=== PATIENT | male | born 1945 | race Caucasian/White ===

== ENCOUNTER → 2017-09-15 | Outpatient (CLI) | payer MEDICARE, OTHER ==
[~2017-09-15] MED LIST: DULO60 PO; LEVCAR2525 PO; PRAM.5 PO; TROSPIUM CHLORI60 MG PO; ULTRA-LIGHT RO1 EACH UD; [UNRECOGNIZED DRUG - OTHER] PO
== END | disposition home or self-care (01) ==
LOC: PLD 07:58 → LAB SHORT 07:58
DX: D22.5 Melanocytic nevi of trunk (principal)
CPT/HCPCS: 88305

== ENCOUNTER → 2019-10-16 | Outpatient (CLI) | payer MEDICARE, OTHER | END | disposition home or self-care (01) | LOC: PLD 08:14 → LAB SHORT 08:14 | DX: D48.5 Neoplasm of uncertain behavior of skin (principal) | CPT/HCPCS: 88305 ==

== ENCOUNTER → 2020-09-30 | Outpatient (CLI) | payer MEDICARE, OTHER | END | disposition home or self-care (01) | LOC: LAB SHORT 11:42 → LAB 11:42 | DX: D48.5 Neoplasm of uncertain behavior of skin (principal) | CPT/HCPCS: 88305 ==

== ENCOUNTER 2021-11-27 11:54 | Emergency (ER) | payer MEDICARE, OTHER ==
[~2021-11-27] VITALS: Ht 188 cm; Wt 68.0 kg
[2021-11-27 12:52] LABS: BASOPHILS ABSOLUTE AUTO 0.05 K/mm3 (0.00-0.23); BASOPHILS PERCENT AUTO 0 % (0-2); EOSINOPHILS ABSOLUTE AUTO 0.03 K/mm3 (0.00-0.68); EOSINOPHILS PERCENT AUTO 0 % (0-6); Hematocrit 38.3 % (37.0-53.0); Hemoglobin 12.8 g/dL (13.5-17.5); IMMATURE GRAN ABSOLUTE AUTO 0.06 K/mm3 (0.00-0.10); IMMATURE GRAN PERCENT AUTO 0 % (0-1); LYMPHOCYTES ABSOLUTE AUTO 1.41 K/mm3 (0.84-5.20); LYMPHOCYTES PERCENT AUTO 10 % (21-46); MONOCYTES ABSOLUTE AUTO 1.23 K/mm3 (0.16-1.47); MONOCYTES PERCENT AUTO 9 % (4-13); Mean Corpuscular HGB 31.3 pg (26.0-34.0); Mean Corpuscular HGB Conc 33.4 g/dL (31.5-36.5); Mean Corpuscular Volume 94 fL (80-100); Mean Platelet Volume 11.5 fL (9.1-12.4); NEUTROPHILS ABSOLUTE AUTO 11.65 K/mm3 (1.96-9.15); NEUTROPHILS PERCENT AUTO 81 % (41-73); Platelet Count 205 K/mm3 (150-400); RDW Coefficient Variation 12.3 % (11.7-14.2); RDW Standard Deviation 42.7 fL (35.1-46.3); Red Blood Cell Count 4.09 M/mm3 (4.30-5.90); White Blood Cell Count 14.43 K/mm3 (4.00-11.30)
[2021-11-27 15:05] LABS: Source, Urine Foley catheter
[2021-11-27 15:10] LABS: Appearance, Urine Hazy (Clear); Bilirubin, Urine Neg (Neg); Blood, Urine 5+ (Neg); Color, Urine Yellow (P-Yellow); Glucose Qualitative, Urine Neg (Neg); Ketones, Urine Neg (Neg); Leukocyte Esterase, Urine Neg (Neg); Nitrite, Urine Neg (Neg); Protein, Urine 1+ (Neg); Urobilinogen, Urine NORM (Normal)
[2021-11-27 15:34] LABS: Bacteria Few /hpf; Hyaline Casts 0-2 /lpf (0-2); RBC Cast 0-2 /lpf (0); Red Blood Cells, Urine 25-50 /hpf (0-2); Squamous Epithelial Cells Rare /hpf (Few); White Blood Cells, Urine 0-2 /hpf (0-5)
[2021-11-27 16:13] LABS: Bun/Creatinine Ratio 13.7 (12.0-20.0); Calcium, Blood 8.8 mg/dL (8.5-10.1); Creatinine, Blood 3.29 mg/dL (0.60-1.20); Potassium, Blood 3.9 mmol/L (3.5-5.5)
== END 2021-11-27 18:56 | disposition home or self-care (01) ==
LOC: ER 11:54
PROVIDERS: Student in an Organized Health Care Education/Training Program
DX: N17.9 Acute kidney failure, unspecified (principal); G20 Parkinson's disease; Z88.8 Allergy status to other drugs, medicaments and biological substances; Z79.899 Other long term (current) drug therapy; Z87.891 Personal history of nicotine dependence
CPT/HCPCS: 51702; 51798; 80048; 81001; 85025; 99284-25; J7030

== ENCOUNTER 2021-12-03 01:18 | Day surgery (SDC) | payer MEDICARE, OTHER ==
[2021-12-04] MEDS ORDERED: CEPH500 PO (09:19)
== END 2021-12-03 08:48 | disposition home or self-care (01) ==
LOC: ATC 01:18
DX: T83.028A Displacement of other urinary catheter, initial encounter (principal); Y73.8 Miscellaneous gastroenterology and urology devices associated with adverse incidents, not elsewhere classified; I12.9 Hypertensive chronic kidney disease with stage 1 through stage 4 chronic kidney disease, or unspecified chronic kidney disease; N18.4 Chronic kidney disease, stage 4 (severe); G20 Parkinson's disease
CPT/HCPCS: 99211

== ENCOUNTER 2021-12-04 03:21 | Emergency (ER) | payer MEDICARE, OTHER ==
[~2021-12-04] VITALS: Ht 188 cm; Wt 74.8 kg
[2021-12-04 04:55] LABS: Source, Urine Foley catheter
[2021-12-04 05:03] LABS: Bilirubin, Urine Neg (Neg); Blood, Urine 5+ (Neg); Glucose Qualitative, Urine Neg (Neg); Ketones, Urine 1+ (Neg); Leukocyte Esterase, Urine 3+ (Neg); Nitrite, Urine Neg (Neg); Protein, Urine 3+ (Neg); Specific Gravity, Urine 1.015 (1.003-1.022); Urobilinogen, Urine NORM (Normal)
[2021-12-04 05:22] LABS: Appearance, Urine Turbid (Clear); Color, Urine Brown (P-Yellow)
[2021-12-04 05:28] LABS: Bacteria Many /hpf; Squamous Epithelial Cells Not Seen /hpf (Few); White Blood Cells, Urine TNTC /hpf (0-5)
[2021-12-04 07:21] LABS: BASOPHILS ABSOLUTE AUTO 0.09 K/mm3 (0.00-0.23); BASOPHILS PERCENT AUTO 1 % (0-2); EOSINOPHILS ABSOLUTE AUTO 0.04 K/mm3 (0.00-0.68); EOSINOPHILS PERCENT AUTO 0 % (0-6); Hematocrit 40.1 % (37.0-53.0); IMMATURE GRAN ABSOLUTE AUTO 0.18 K/mm3 (0.00-0.10); IMMATURE GRAN PERCENT AUTO 1 % (0-1); LYMPHOCYTES ABSOLUTE AUTO 0.86 K/mm3 (0.84-5.20); LYMPHOCYTES PERCENT AUTO 5 % (21-46); MONOCYTES ABSOLUTE AUTO 1.09 K/mm3 (0.16-1.47); MONOCYTES PERCENT AUTO 6 % (4-13); Mean Corpuscular HGB 31.5 pg (26.0-34.0); Mean Corpuscular HGB Conc 32.4 g/dL (31.5-36.5); Mean Corpuscular Volume 97 fL (80-100); NEUTROPHILS ABSOLUTE AUTO 15.71 K/mm3 (1.96-9.15); NEUTROPHILS PERCENT AUTO 87 % (41-73); Platelet Count 229 K/mm3 (150-400); RDW Coefficient Variation 11.9 % (11.7-14.2); RDW Standard Deviation 42.6 fL (35.1-46.3); Red Blood Cell Count 4.13 M/mm3 (4.30-5.90); White Blood Cell Count 17.97 K/mm3 (4.00-11.30)
[2021-12-04 07:39] LABS: Albumin, Blood 3.2 g/dL (3.4-5.0); Bilirubin, Total 0.7 mg/dL (0.1-1.0); Bun/Creatinine Ratio 20.8 (12.0-20.0); Calcium, Blood 9.3 mg/dL (8.5-10.1); Creatinine, Blood 1.25 mg/dL (0.60-1.20); Globulin, Blood 3.3 g/dL (2.2-4.0); Potassium, Blood 4.1 mmol/L (3.5-5.5); Total Protein, Blood 6.5 g/dL (6.4-8.2)
[2021-12-04] MEDS ORDERED: CEPH500 PO (09:19)
== END 2021-12-04 10:08 | disposition home or self-care (01) ==
LOC: ER 03:21
PROVIDERS: Emergency Medicine
DX: N39.0 Urinary tract infection, site not specified (principal); G20 Parkinson's disease; Z79.899 Other long term (current) drug therapy; Z87.891 Personal history of nicotine dependence
CPT/HCPCS: 36415; 51702; 80053; 81001; 85025; J0696

== ENCOUNTER 2022-01-06 09:21 | Inpatient (IN) | payer MEDICARE, OTHER ==
[~2022-01-06] VITALS: Ht 188 cm; Wt 70.3 kg
[~2022-01-06 09:21] MED LIST changes: +CARBIDOPA-LEVO1 EA20 PO; +CEPH500 PO; -LEVCAR2525 PO
[2022-01-06 10:56] LABS: Source, Urine Straight Cath
[2022-01-06 10:59] LABS: Bilirubin, Urine Neg (Neg); Blood, Urine 5+ (Neg); Glucose Qualitative, Urine Neg (Neg); Ketones, Urine Neg (Neg); Leukocyte Esterase, Urine 3+ (Neg); Nitrite, Urine Neg (Neg); Protein, Urine 3+ (Neg); Urobilinogen, Urine NORM (Normal)
[2022-01-06 11:08] LABS: Appearance, Urine Hazy (Clear); Color, Urine Yellow (P-Yellow)
[2022-01-06 11:09] LABS: Bacteria Many /hpf; Squamous Epithelial Cells Not Seen /hpf (Few); White Blood Cells, Urine 50-100 /hpf (0-5)
[2022-01-06 11:36] LABS: Hematocrit 37.5 % (37.0-53.0); Hemoglobin 12.4 g/dL (13.5-17.5); Mean Corpuscular HGB 31.6 pg (26.0-34.0); Mean Corpuscular HGB Conc 33.1 g/dL (31.5-36.5); Mean Corpuscular Volume 96 fL (80-100); Mean Platelet Volume 11.2 fL (9.1-12.4); Platelet Count 179 K/mm3 (150-400); RDW Coefficient Variation 12.6 % (11.7-14.2); RDW Standard Deviation 44.3 fL (35.1-46.3); Red Blood Cell Count 3.92 M/mm3 (4.30-5.90); White Blood Cell Count 29.63 K/mm3 (4.00-11.30)
[2022-01-06 11:59] LABS: International Normalized Ratio 1.09; Prothrombin Time Results 11.4 Sec (9.7-11.5)
[2022-01-06 12:01] LABS: Albumin, Blood 3.2 g/dL (3.4-5.0); Bilirubin, Direct 0.2 mg/dL (0.0-0.3); Bilirubin, Indirect 0.5 mg/dL (0.1-0.7); Bilirubin, Total 0.7 mg/dL (0.1-1.0); Bun/Creatinine Ratio 28.4 (12.0-20.0); Calcium, Blood 8.8 mg/dL (8.5-10.1); Creatinine, Blood 1.09 mg/dL (0.60-1.20); Globulin, Blood 3.1 g/dL (2.2-4.0); Magnesium, Blood 1.8 mg/dL (1.6-2.4); Phosphorus, Blood 2.1 mg/dL (2.5-4.9); Potassium, Blood 3.7 mmol/L (3.5-5.5); Total Protein, Blood 6.3 g/dL (6.4-8.2)
[2022-01-06 12:05] LABS: BAND PERCENT MAN 11 % (0-8); BASOPHILS PERCENT MAN 0 % (0-2); EOSINOPHILS PERCENT MAN 0 % (0-6); LYMPHOCYTES ABSOLUTE MAN 0.29 K/mm3 (0.84-5.20); LYMPHOCYTES PERCENT MAN 1 % (21-46); METAMYELOCYTE ABSOLUTE MAN 0.29 K/mm3 (0.00-0.00); METAMYELOCYTE PERCENT MAN 1 % (0-0); MONOCYTES ABSOLUTE MAN 1.48 K/mm3 (0.16-1.47); MONOCYTES PERCENT MAN 5 % (4-13); NEUTROPHILS ABSOLUTE MAN 27.55 K/mm3 (1.96-9.15); SEG NEUTROPHILS PERCENT MAN 82 % (41-73); TOTAL CELLS COUNTED 100
[2022-01-06 12:06] LABS: Influenza A, PCR NEGATIVE (NEGATIVE); Influenza B, PCR NEGATIVE (NEGATIVE); Resp Syncytial Virus, PCR NEGATIVE (NEGATIVE); SARS-Cov-2 (COVID-19) PCR, MMC NEGATIVE (NEGATIVE)
[2022-01-06] MEDS ORDERED: ONGENTYS PO (14:32)
--- NOTE | 2022-01-06 17:37 | NUR ---
TRANSFER NOTE/SHIFT SUMMARY PATIENT TO ROOM AT 1505. REPORT TAKEN FROM LENNY IN THE ER. PATIENT'S VITALS STABLE. CONTINUOUS TELEMETRY SHOWING NSR IN THE 80S. PATIENT AFEBRILE. MEI AT BEDSIDE AT TIME OF TRANSFER. GAVE HISTORY AND MEDICATION INFORMATION TO THIS RN. PATIENT IS ALERT AND ORIENTED, ANSWERING QUESTIONS APPROPRIATELY. PATIENT WITH PARKINSONS DIAGNOSIS WITH SLURRED/GARBLED SPEECH THAT IS HARD TO UNDERSTAND. PATIENT BECOMES FRUSTRATED WHEN STAFF DO NOT UNDERSTAND WHAT HE IS SAYING. STATES PATIENT IS FORGETFUL AT TIMES. AND PATIENT REPORT HALLUCINATIONS DUE TO THE PARKINSONS; PATIENT STATES THEY ARE MOSTLY HARMLESS BUT OCCASIONALLY BECOME "MENACING". PATIENT REPORTS NO HALLUCINATIONS AT THIS TIME. PATIENT IS CALM AND COOPERATIVE WITH CARE. NEURO/BRAIN STIMULATOR FOR PARKINSONS WITH DEVICE IN LEFT UPPER CHEST WALL. STATES SHE WILL BRING CHILD PROTECTION SPECIALIST FOR DEVICE TOMORROW. PATIENT WITH CHRONIC ARTIS WITH RECURRENT UTI'S. ARTIS WAS JUST PLACED AT UROLOGY; KNOWN UTI AT THIS TIME; WAITING FOR URINE CULTURE. PATIENT SITTING UP IN BED EATING DINNER AT THIS TIME. PATIENT ABLE TO FEED SELF BUT NEEDS HELP WITH SET UP. BED IN LOWEST POSITION AND CALL LIGHT WITHIN REACH. WILL CONTINUE TO MONITOR UNTIL SHIFT CHANGE AT 1900.
--- NOTE | 2022-01-06 21:18 | NUR ---
CARE ASSUMPTION: PATIENT RESTLESS IN BED DURING BEDSIDE REPORT, A&O TO SELF, VS WNL, ARTIS DRAINING TO GRAVITY. PATIENT PULLED IV OUT ~1939. STONE SAWYER OBTAINED ORDER FOR NIKOLE VEST RESTRAINT FOR PATIENT SAFETY - PATIENT IS TOLERATING IT WELL. MEDICATED PER EMAR. FREQUENT ROUNDING. BED LOW WITH CALL LIGHT IN REACH.
[2022-01-07 04:19] LABS: BASOPHILS ABSOLUTE AUTO 0.05 K/mm3 (0.00-0.23); BASOPHILS PERCENT AUTO 0 % (0-2); EOSINOPHILS ABSOLUTE AUTO 0.01 K/mm3 (0.00-0.68); EOSINOPHILS PERCENT AUTO 0 % (0-6); Hematocrit 30.1 % (37.0-53.0); Hemoglobin 9.9 g/dL (13.5-17.5); IMMATURE GRAN ABSOLUTE AUTO 0.59 K/mm3 (0.00-0.10); IMMATURE GRAN PERCENT AUTO 3 % (0-1); LYMPHOCYTES ABSOLUTE AUTO 0.72 K/mm3 (0.84-5.20); LYMPHOCYTES PERCENT AUTO 4 % (21-46); MONOCYTES ABSOLUTE AUTO 0.75 K/mm3 (0.16-1.47); MONOCYTES PERCENT AUTO 4 % (4-13); Mean Corpuscular HGB 31.4 pg (26.0-34.0); Mean Corpuscular HGB Conc 32.9 g/dL (31.5-36.5); Mean Corpuscular Volume 96 fL (80-100); Mean Platelet Volume 12.1 fL (9.1-12.4); NEUTROPHILS ABSOLUTE AUTO 18.46 K/mm3 (1.96-9.15); NEUTROPHILS PERCENT AUTO 90 % (41-73); Platelet Count 121 K/mm3 (150-400); RDW Coefficient Variation 12.9 % (11.7-14.2); RDW Standard Deviation 45.4 fL (35.1-46.3); Red Blood Cell Count 3.15 M/mm3 (4.30-5.90); White Blood Cell Count 20.58 K/mm3 (4.00-11.30)
[2022-01-07 04:42] LABS: Albumin, Blood 2.3 g/dL (3.4-5.0); Albumin/Globulin Ratio 0.8 (0.8-1.8); Bilirubin, Total 0.7 mg/dL (0.1-1.0); Bun/Creatinine Ratio 32.1 (12.0-20.0); Calcium, Blood 7.6 mg/dL (8.5-10.1); Creatinine, Blood 1.09 mg/dL (0.60-1.20); Globulin, Blood 2.8 g/dL (2.2-4.0); Magnesium, Blood 1.6 mg/dL (1.6-2.4); Potassium, Blood 3.3 mmol/L (3.5-5.5); Total Protein, Blood 5.1 g/dL (6.4-8.2)
--- NOTE | 2022-01-07 04:54 | NUR ---
CALL TO MD: NOTIFIED MD OF K 3.3, BP WITH MAP <60, AND GRAM VARIABLE BACILLI IN BLOOD CULTURES. NEW ORDERS FOR KCL AND NS BOLUS. PREVIOUS ORDER FOR ABRAHAM HUNT COVER GRAM VARIABLE BACILLI PER MD.
--- NOTE | 2022-01-07 06:44 | NUR ---
SHIFT SUMMARY: PATIENT BP IMPROVED FOLLOWING 500 ML BOLUS - MAP >65 AND SYSTOLIC BP >100 AT THIS TIME. MEDICATED PER EMAR. RESTRAINTS CHARTED Q2 - PATIENT TOLERATING WELL. PATIENT FIDGETS WITH BLANKETS, CLOTHING, AND REQUIRES FREQUENT REPOSITIONING HE SLIDES/PUSHES HIMSELF TOWARDS END OF BED. KCL INFUSING AT THIS TIME. BED LOW WITH CALL LIGHT IN REACH. WILL CONTINUE TO MONITOR AND REPORT TO ONCOMING RN.
--- NOTE | 2022-01-07 15:34 | NUR ---
Joint visit by [facility] and this PC RN with Pt and Pt's spouse Bettina. 77 year old male admitted to the hospital for Severe Sepsis. Pt's medical hostory and comorbidities include: Parkinson's Disease, Chronic Urinary Retention, and Chronic Indwelling Catheter. Pt resting in bed and is A&OX2/3. Pt denies pain at this time. Pt difficult to understand due to soft garbled speech. Pt's spouse Bettina at bedside. ST [facility] discusses findings on modified barrium swallow study including recommendations for NPO. Potential options discussed pending hospitalist recommendations inlcuding considering hospice, and tube feedings. Offered active listening, answered questions, and validated concerns. Bettina is requesting to speak with hospitalist before making any decisions. Called resident and relayed message. Spoke with Primary RN Deisy and discussed case. Palliative Care will remain available for therapeutic and supportive visits.
--- NOTE | 2022-01-07 17:59 | NUR ---
PT ARRIVED TO THE UNIT APPROX 1430. HIS WAS AT BEDSIDE. PALATIVE CARE NURSE CAME TO TALK TO THEM ABOUT RESULTS OF BARIUM EVALUATION, FOLLOWED UP BY DR. CABRAL. THE RISKS OF ASPERATION WERE EXPLAINED TO THE PT AND HIS AT THIS TIME THEY OPTED TO CONTIUE WITH ORAL INTAKE OF NUTRITION AND EXPRESS UNDERSTANDING OF THE RISKS. HE IS IN A NIKOLE VEST FOR PULLING LINES. ARTIS IS PATIENT AND DRAINING. HIS BED IS IN THE LOW POSITION AND CALL LIGHT IS WITIN REACH.
[2022-01-07 21:54] LABS: Hematocrit 31.7 % (37.0-53.0); Hemoglobin 10.6 g/dL (13.5-17.5)
--- NOTE | 2022-01-08 03:22 | NUR ---
BEAD WIRE INSULATOR SUMMARY AT SHIFT START WAS IN NIKOLE HE WAS VERY UNSTEADY AND POTENTIAL FALL RISK AND DID NOT REDIRECT. AGITATION CONTINUED INTO THIS SHIFT. PULLED AT ARTIS AND NOT REDIRECTABLE. WAS PLACED ON BEDPAN HE SAID HE NEEDED TO HAVE BM. STAFF RETURNED 5 MINUTES LATER AND WAS FOUND IN BATHROOM SITTING ON SHOWER CHAIR WITH BLOOD COMING FROM HIS IV. STATED "PLEASE HELP ME". ASSISTED BACK TO BED, RESTRAINTS INCREASED TO 4 POINT SOFT AND RAILS UP X 4 WELL NIKOLE PER MD ORDERS. MD ALSO ORDERED AN H AND H DUE TO LOSS OF BLOOD. SEE LABS FOR DETAILS. IVF AND ANTIBIOTICS INFUSING. CALL LIGHT IN REACH. WILL CONTINUE TO MONITOR. AND ASSESS
[2022-01-08 11:09] LABS: BASOPHILS ABSOLUTE AUTO 0.02 K/mm3 (0.00-0.23); BASOPHILS PERCENT AUTO 0 % (0-2); EOSINOPHILS ABSOLUTE AUTO 0.01 K/mm3 (0.00-0.68); EOSINOPHILS PERCENT AUTO 0 % (0-6); Hematocrit 32.9 % (37.0-53.0); Hemoglobin 10.5 g/dL (13.5-17.5); IMMATURE GRAN ABSOLUTE AUTO 0.14 K/mm3 (0.00-0.10); IMMATURE GRAN PERCENT AUTO 1 % (0-1); LYMPHOCYTES ABSOLUTE AUTO 0.46 K/mm3 (0.84-5.20); LYMPHOCYTES PERCENT AUTO 4 % (21-46); MONOCYTES ABSOLUTE AUTO 0.51 K/mm3 (0.16-1.47); MONOCYTES PERCENT AUTO 5 % (4-13); Mean Corpuscular HGB 30.8 pg (26.0-34.0); Mean Corpuscular HGB Conc 31.9 g/dL (31.5-36.5); Mean Corpuscular Volume 97 fL (80-100); Mean Platelet Volume 12.3 fL (9.1-12.4); NEUTROPHILS ABSOLUTE AUTO 10.22 K/mm3 (1.96-9.15); NEUTROPHILS PERCENT AUTO 90 % (41-73); Platelet Count 106 K/mm3 (150-400); RDW Coefficient Variation 12.8 % (11.7-14.2); RDW Standard Deviation 45.5 fL (35.1-46.3); Red Blood Cell Count 3.41 M/mm3 (4.30-5.90); White Blood Cell Count 11.36 K/mm3 (4.00-11.30)
[2022-01-08 11:21] LABS: Bun/Creatinine Ratio 29.8 (12.0-20.0); Calcium, Blood 8.2 mg/dL (8.5-10.1); Creatinine, Blood 1.14 mg/dL (0.60-1.20); Potassium, Blood 3.6 mmol/L (3.5-5.5)
--- NOTE | 2022-01-08 17:51 | NUR ---
SHIFT SUMMARY- PT IS ALERT, PLESANT AND COOPERATIVE. HE HAS SOME CONFUSION. HIS WAS AT BEDSIDE THIS AFTERNOON. DR JULIEN DISCUSSED PLAN WITH , PT WILL DISCHARGE IN THE AFTERNOON AFTER HIS ABX DOSE. HE IS IN A NIKOLE VEST DUE TO IMPULSIVENESS. HIS BED IS IN THE LOW POSITON AND CALL LIGHT IS WITHIN REACH
--- NOTE | 2022-01-09 03:05 | NUR ---
WATER HAULER SUMMARY ALTHOUGH NO LONGER IN SOFT RESTRAINTS X 4 EXT, REMAINS IN NIKOLE FOR HIGH FALL PRECAUTIONS FOR SAFETY. INTERMITTENT CONFUSION CONTINUES, MORE COMPLIANT WITH DIRECTIONS BUT STILL VERY UNSTEADY IN AMBULATION. HOB ELEVATED FOR PO FLUIDS. IVF OF NS INFUSING AT 150 ML/HR. HAS BEEN RESTING QUIETLY AT INTERVALS. NO S/S ACUTE DISTRESS. REMAINS ON CAMERA FOR SAFETY WELL. CALL LIGHT IN REACH. VSS. WILL CONTINUE TO MONITOR.
[2022-01-09 05:53] LABS: BASOPHILS ABSOLUTE AUTO 0.02 K/mm3 (0.00-0.23); BASOPHILS PERCENT AUTO 0 % (0-2); EOSINOPHILS ABSOLUTE AUTO 0.03 K/mm3 (0.00-0.68); EOSINOPHILS PERCENT AUTO 0 % (0-6); Hematocrit 28.2 % (37.0-53.0); Hemoglobin 9.4 g/dL (13.5-17.5); IMMATURE GRAN ABSOLUTE AUTO 0.12 K/mm3 (0.00-0.10); IMMATURE GRAN PERCENT AUTO 1 % (0-1); LYMPHOCYTES ABSOLUTE AUTO 0.62 K/mm3 (0.84-5.20); LYMPHOCYTES PERCENT AUTO 6 % (21-46); MONOCYTES ABSOLUTE AUTO 0.74 K/mm3 (0.16-1.47); MONOCYTES PERCENT AUTO 7 % (4-13); Mean Corpuscular HGB 31.5 pg (26.0-34.0); Mean Corpuscular HGB Conc 33.3 g/dL (31.5-36.5); Mean Corpuscular Volume 95 fL (80-100); Mean Platelet Volume 12.6 fL (9.1-12.4); NEUTROPHILS ABSOLUTE AUTO 8.66 K/mm3 (1.96-9.15); NEUTROPHILS PERCENT AUTO 85 % (41-73); Platelet Count 116 K/mm3 (150-400); RDW Coefficient Variation 12.6 % (11.7-14.2); RDW Standard Deviation 43.8 fL (35.1-46.3); Red Blood Cell Count 2.98 M/mm3 (4.30-5.90); White Blood Cell Count 10.19 K/mm3 (4.00-11.30)
[2022-01-09] MEDS ORDERED: VISBIOME 112.51 EACH PO (11:36)
[2022-01-09] MEDS ORDERED: LEVO750 PO (11:37)
--- NOTE | 2022-01-09 11:44 | NUR ---
Supportive visit this AM. Pt sitting in chair with spouse at bedside. Engaged in active listening as spouse reports plan for D/C today. She reports she and Pt are moving down to [place] to be closer to friends and family. Continued active listening and answered questions. Encourage spouse to establish with a PCP for Pt as soon as possible. Spouse expresses appreication and report no other concerns at this time. Palliative Care will remain available.
--- NOTE | 2022-01-09 13:20 | NUR ---
PT DISCHARGED WITH VIA PRIVATE VEHICLE. IV D/C'D WNL. BELONGINGS SENT WITH PT.
== END 2022-01-09 13:03 | disposition home health service (06) | DRG 871 ==
LOC: ER 09:21 → PCU 13:17 → MEDS 01-07 14:38
PROVIDERS: Family Medicine; Internal Medicine; Nurse Practitioner Acute Care; Student in an Organized Health Care Education/Training Program; ADMIT Internal Medicine
DX: A41.81 Sepsis due to Enterococcus (principal); G92.9 Unspecified toxic encephalopathy; J18.9 Pneumonia, unspecified organism; J69.0 Pneumonitis due to inhalation of food and vomit; T83.511A Infection and inflammatory reaction due to indwelling urethral catheter, initial encounter; N39.0 Urinary tract infection, site not specified; Z66 Do not resuscitate; N32.81 Overactive bladder; F32.A Depression, unspecified; E87.6 Hypokalemia; D64.9 Anemia, unspecified; R65.20 Severe sepsis without septic shock; G20 Parkinson's disease; Z88.8 Allergy status to other drugs, medicaments and biological substances; Z79.899 Other long term (current) drug therapy; Z87.891 Personal history of nicotine dependence; Z98.890 Other specified postprocedural states
CPT/HCPCS: 0241U; 36415; 71046; 74230; 76770; 80048; 80053; 81001; 82248; 83605; 83735; 84100; 84145; 85014; 85018; 85025; 85610; 85730; 87040; 87077; 87086; 87186; 92526; 92610; 92611; 93005; 93010; 97110; 97112; 97116; 97162; A9270; J0696; J1650; J1956; J2543; J3480; J7030; J7050